=== PATIENT | male | born 1970 | race American Indian/Alaskan Native ===

== ENCOUNTER 2022-06-22 09:05 | Inpatient (IN) | payer SELFPAY ==
[2022-06-22 10:39] LABS: Basophils % (Auto) 0.3 % (0.0-1.8); Eosinophils % (Auto) 0.2 % (0.0-4.3); Hemoglobin 15.4 gm/dl (11.8-15.2); Lymphocytes % (Auto) 7.9 % (13.4-35.0); Mean Corpuscular HGB Conc 33 % (32-34); Mean Corpuscular Volume 89 fl (84-94); Monocytes # (Auto) 1.4 K/mm3 (0.0-0.8); Monocytes % (Auto) 10.8 % (0.0-7.3); Platelet Count 331 K/mm3 (140-440); Red Blood Count 5.27 M/mm3 (3.65-5.03); Red Cell Distribution Width 15.3 % (13.2-15.2)
[2022-06-22 10:58] LABS: BUN/Creatinine Ratio 11; Blood Urea Nitrogen 9 mg/dL (9-20); Calcium 9.7 mg/dL (8.4-10.2); Hemolysis Index 3
[2022-06-22] MEDS ORDERED: FAMOTIDINE 20 MG/2 ML INJ IV ONE (18:38)
[2022-06-22] MEDS ORDERED: SODIUM CHLORIDE 0.9% 1000 ML 1,000 ML IV ONE (18:38)
[2022-06-22] MEDS ORDERED: ONDANSETRON 4 MG/2 ML INJ IV ONE ×2 (18:38→21:58)
[2022-06-22] MEDS ORDERED: HYDROmorphone 1 MG/1 ML INJ IV ONE (18:38)
[2022-06-22 19:53] LABS: Color,Urine Yellow (Yellow)
[2022-06-22 19:56] LABS: Bacteria,Urine 1+ /HPF (Negative); Granular Casts,Urine 3 /LPF; Hyaline Casts,Urine 1 /LPF; Mucus,Urine 1+ /HPF
[2022-06-22 20:00] LABS: Ictotest,Urine Negative (Negative)
--- NOTE | 2022-06-22 20:07 | Emergency Department Report ---
<ARABELLA MCCRAY - Last Filed: 06/22/22 20:03> ED Abdominal Pain HPI - General Chief Complaint: Abdominal Pain Stated Complaint: STOMACH PAIN Source: patient Mode of arrival: Wheelchair Limitations: No Limitations - History of Present Illness Initial Comments: Patient is a 52-year-old male with no past medical history who presents to the ED with complaint of acute onset persistent right upper quadrant and right lower quadrant with nausea and vomiting for the last 2 days, worse in the last 12 hours. Patient states that he has not been able to keep anything down in the last 24 hours. Patient denies dizziness, syncope, fever, chills, chest pain, shortness of breath, cough, traumatic injury, hematemesis, hematochezia, diarrhea, dysuria, urinary frequency and urgency, testicular pain or hematuria. MD Complaint: abdominal pain (RUQ and RLQ ), other (nausea, vomiting) -: Gradual, days(s) (2) Location: periumbilical, RUQ, RLQ Radiation: RUQ, RLQ Migration to: no migration Severity: severe Severity scale (0 -10): 7 Quality: cramping, sharp Consistency: constant Improves With: nothing Worsens With: vomiting Associated Symptoms: denies other symptoms, nausea, vomiting, anorexia. denies: diarrhea, fever, chills, constipation, hematemesis, hematochezia, melena, hematuria, syncope, other - Related Data Allergies Allergy/AdvReac Type Severity Reaction Status Date / Time No Known Allergies Allergy Verified 06/22/22 09:33 ED Review of Systems Constitutional: denies: chills, fever Eyes: denies: eye pain, eye discharge, vision change ENT: denies: ear pain, throat pain Respiratory: denies: cough, shortness of breath, wheezing Cardiovascular: denies: chest pain, palpitations Endocrine: no symptoms reported Gastrointestinal: abdominal pain, nausea, vomiting. denies: diarrhea Genitourinary: denies: urgency, dysuria Musculoskeletal: denies: back pain, joint swelling, arthralgia Skin: denies: rash, lesions Neurological: denies: headache, weakness, paresthesias Psychiatric: denies: anxiety, depression Hematological/Lymphatic: denies: easy bleeding, easy bruising ED Physical Exam - General Limitations: No Limitations General appearance: alert, in no apparent distress - Head Head exam: Present: atraumatic, normocephalic, normal inspection - Eye Eye exam: Present: normal appearance, PERRL, EOMI Pupils: Present: normal accommodation - ENT ENT exam: Present: normal exam, normal orophraynx, mucous membranes moist, TM's normal bilaterally, normal external ear exam - Neck Neck exam: Present: normal inspection, full ROM - Respiratory Respiratory exam: Present: normal lung sounds bilaterally. Absent: respiratory distress, wheezes, rales, rhonchi, chest wall tenderness, accessory muscle use, decreased breath sounds, prolonged expiratory - Cardiovascular Cardiovascular Exam: Present: regular rate, normal rhythm, normal heart sounds. Absent: systolic murmur, diastolic murmur, rubs, gallop - GI/Abdominal GI/Abdominal exam: Present: soft, tenderness (Palpable right upper quadrant and right lower quadrant), guarding, normal bowel sounds. Absent: rebound, hyp eractive bowel sounds, hypoactive bowel sounds, organomegaly, mass, bruit - Extremities Exam Extremities exam: Present: normal inspection, full ROM, normal capillary refill. Absent: tenderness - Back Exam Back exam: Present: normal inspection, full ROM. Absent: tenderness, CVA tenderness (R), CVA tenderness (L), muscle spasm, paraspinal tenderness, vertebral tenderness - Neurological Exam Neurological exam: Present: alert, oriented X3, CN II-XII intact, normal gait, reflexes normal - Psychiatric Psychiatric exam: Present: normal affect, normal mood - Skin Skin exam: Present: warm, dry, intact, normal color. Absent: rash ED Medical Decision Making - Lab Data Result diagrams: 06/22/22 09:54 06/22/22 09:54 - Radiology Data Radiology results: report reviewed, image reviewed - Medical Decision Making This is a 52-year-old male with no past medical history who presents to the ED with complaint of acute onset persistent right upper quadrant and right lower qu adrant with nausea and vomiting for the last 2 days, worse in the last 12 hours. Patient states that he has not been able to keep anything down in the last 24 hours. In the ED, patient is alert and oriented x3 and is not in any distress. Patient was treated for pain in the ED also given antiemetics, antacids and normal saline 1 L IV bolus x1. Lab test results were reviewed and showed acute leukocytosis of 12,500. Abdomen pelvis CT scan with IV contrast is pending. Patient care was transferred to my colleague Mr. Rodney Robbins NP at shift change at 2000 hours. He shall review all lab test results and imaging report and disposition the patient accordingly. - Differential Diagnosis Appendicitis; cholecystitis; cholelithiasis; colitis; kidney stone; UTI ED Disposition Clinical Impression: Nausea and vomiting in adult, Abdominal pain in male, Acute cholecystitis, Gall stones Disposition: HOME / SELF CARE / HOMELESS Condition: Stable Instructions: Nausea and Vomiting, Adult, [id number], Abdominal Pain, Adult, [id number], Cholecystitis <LAI ROBBINS - Last Filed: 06/22/22 22:25> ED Review of Systems ROS: Stated complaint: STOMACH PAIN Other details as noted in HPI ED Course Vital Signs 06/22/22 06/22/22 06/22/22 09:30 10:54 22:00 Temperature 98.7 F Pulse Rate 66 79 93 H Respiratory 20 22 20 Rate Blood Pressure 175/94 171/99 171/79 [Right] O2 Sat by Pulse 98 98 96 Oximetry ED Medical Decision Making - Lab Data Result diagrams: 06/22/22 09:54 06/22/22 09:54 - Radiology Data CT ABDOMEN AND PELVIS WITH IV CONTRAST INDICATION: abdominal pain. COMPARISON: Right upper quadrant ultrasound earlier today. TECHNIQUE: All CT scans at this facility use dose modulation, automated exposure control, iterative reconstruction or weight based dosing, when appropriate, to reduce radiation dose to as low as reasonably achievable. FINDINGS: Lung Bases: Bibasilar opacities greater on the right are most likely atelectatic. Skeletal System: No acute abnormality. ABDOMEN: Liver: No significant abnormality. Gallbladder: Gallbladder is distended and there is moderate pericholecystic inflammatory change. Bile Ducts: No significant abnormality. Adrenals: No significant abnormality. Right Kidney: No significant abnormality. Left Kidney: No significant abnormality. Pancreas: No significant abnormality. Spleen: No significant abnormality. Upper GI tract: No significant abnormality. Lymph Nodes: No significant adenopathy. Aorta: No significant abnormality. Additional Findings: Trace free fluid PELVIS: Colon: No acute abnormality. Urinary Bladder and Distal Ureters: No significant abnormality. Appendix: No significant abnormality. Lymph Nodes: No significant adenopathy. Additional Findings: Trace free fluid. IMPRESSION: 1. Gallbladder is distended and there is moderate pericholecystic inflammatory change. Combining this with the ultrasound findings, these findings are consistent with acute cholecystitis. There is trace free fluid in the perihepatic region and in the pelvis. Signer Name: Lars Marcos MD Signed: 06/22/2022 9:38 PM Workstation Name: [id number] Transcribed By: ALVARO Dictated By: Lars Marcos MD Electronically Authenticated By: Lars Marcos MD Signed Date/Time: 06/22/222137 DD/ 33 TD/TT: ULTRASOUND ABDOMEN, LIMITED (RIGHT UPPER QUADRANT) INDICATION / CLINICAL INFORMATION: RUQ pain. COMPARISON: None available. FINDINGS: PANCREAS: Visualized portion shows no significant abnormality. LIVER: No significant abnormality. Normal hepatopedal blood flow in the main portal vein. GALLBLADDER: Gallbladder is filled with sludge and a few small stones. No pericholecystic fluid or gallbladder wall thickening is seen. The conveyancer reported a negative sonographic Hernandez sign. BILE DUCTS: No significant abnormality. Common bile duct measures 3 mm. FREE FLUID: None. ADDITIONAL FINDINGS: None. IMPRESSION: 1. Gallbladder is filled with sludge and a few punctate stones. No biliary dilatation or gallbladder wall thickening. Negative sonographic Hernandez's sign. Signer Name: Lars Marcos MD Signed: 06/22/2022 8:27 PM Workstation Name: [id number] Transcribed By: ALVARO Dictated By: Lars Marcos MD Electronically Authenticated By: Lars Marcos MD Signed Date/Time: 06/22/222026 DD/ 25 TD/TT: - Medical Decision Making consulted hospitalist diagnosis acute cholecystitis recommendation consult general surgery General surgery paged at this time. General surgery consult completed recommendation admit acute cholecystitis, n.p.o. after midnight, antibiotic therapy Zosyn, admit to hospitalist. Will see in AM. Discussed treatment plan with hospitalist agrees with same. Discussed treatment plan with patient patient agrees. Patient is currently alert oriented x3 pain is 4/10 tolerable per patient. Vomiting is controlled at this time. Patient with no acute distress. Critical care attestation.: If time is entered above; I have spent that time in minutes in the direct care of this critically ill patient, excluding procedure time. ED Disposition Is pt being admited?: Yes Does the pt Need Aspirin: No
--- NOTE | 2022-06-22 20:31 | Ultrasound Report ---
ULTRASOUND ABDOMEN, LIMITED (RIGHT UPPER QUADRANT) INDICATION / CLINICAL INFORMATION: RUQ pain. COMPARISON: None available. FINDINGS: PANCREAS: Visualized portion shows no significant abnormality. LIVER: No significant abnormality. Normal hepatopedal blood flow in the main portal vein. GALLBLADDER: Gallbladder is filled with sludge and a few small stones. No pericholecystic fluid or ga llbladder wall thickening is seen. The title i teacher reported a negative sonographic Hernandez sign. BILE DUCTS: No significant abnormality. Common bile duct measures 3 mm. FREE FLUID: None. ADDITIONAL FINDINGS: None. IMPRESSION: 1. Gallbladder is filled with sludge and a few punctate stones. No biliary dilatation or gallbladder wall thickening. Negative sonographic Hernandez's sign. Signer Name: Lars Marcos MD Signed: 06/22/2022 8:27 PM Workstation Name: [id number]
--- NOTE | 2022-06-22 21:42 | Cat Scan Report ---
CT ABDOMEN AND PELVIS WITH IV CONTRAST INDICATION: abdominal pain. COMPARISON: Right upper quadrant ultrasound earlier today. TECHNIQUE: All CT scans at this facility use dose modulation, automated exposure control, iterative reconstructi on or weight based dosing, when appropriate, to reduce radiation dose to as low as reasonably achieva ble. FINDINGS: Lung Bases: Bibasilar opacities greater on the right are most likely atelectatic. Skeletal System: No acute abnormality. ABDOMEN: Liver: No significant abnormality. Gallbladder: Gallbladder is distended and there is moderate pericholecystic inflammatory change. Bile Ducts: No significant abnormality. Adrenals: No significant abnormality. Right Kidney: No significant abnormality. Left Kidney: No significant abnormality. Pancreas: No significant abnormality. Spleen: No significant abnormality. Upper GI tract: No significant abnormality. Lymph Nodes: No significant adenopathy. Aorta: No significant abnormality. Additional Findings: Trace free fluid PELVIS: Colon: No acute abnormality. Urinary Bladder and Distal Ureters: No significant abnormality. Appendix: No significant abnormality. Lymph Nodes: No significant adenopathy. Additional Findings: Trace free fluid. IMPRESSION: 1. Gallbladder is distended and there is moderate pericholecystic inflammatory change. Combining thi s with the ultrasound findings, these findings are consistent with acute cholecystitis. There is trac e free fluid in the perihepatic region and in the pelvis. Signer Name: Lars Marcos MD Signed: 06/22/2022 9:38 PM Workstation Name: [id number]
[2022-06-22] MEDS ORDERED: MORPHINE 4 MG/1 ML INJ IV ONE (21:58)
[2022-06-22] MEDS ORDERED: PIPERACIL/TAZOBACTA 4.5/NS 100 4.5 GM/100 ML VIAL IV ONE (21:59)
[2022-06-23] LABS: Albumin 4.3 g/dL (3.9-5); Bilirubin,Direct 0.6 mg/dL (0-0.2)
[2022-06-23] MEDS ORDERED: ACETAMINOPHEN 325 MG TAB PO PRN (00:56)
[2022-06-23] MEDS ORDERED: MORPHINE 4 MG/1 ML INJ IV PRN (00:56)
[2022-06-23] MEDS ORDERED: ONDANSETRON 4 MG/2 ML INJ IV PRN (00:56)
[2022-06-23] MEDS ORDERED: MAGNESIUM HYDROXIDE (MOM) ORAL LIQD UDC PO PRN (00:56)
[2022-06-23] MEDS ORDERED: SODIUM CHLORIDE 0.9% 1000 ML 1,000 ML IV SCH (01:00)
--- NOTE | 2022-06-23 01:03 | History and Physical Report ---
History of Present Illness Date of examination: 06/23/22 Date of admission: 06/23/2022 Chief complaint: Nausea and Vomiting Abdominal Pain History of present illness: 52-year-old male with no significant past medical history presenting to the emergency room today complaining of abdominal pain. Abdominal pain central started about 2 days ago when he has been having associated nausea and vomiting. Abdominal pain is more in the right upper abdomen. No no relieving or exacerbating factor. He denies any chest pain or shortness of breath, denies any headache or dizziness and denies any diaphoresis. Patient states he has had some mild fever and chills earlier today. He denies any sick contacts and no recent travel. Denies any contact with anyone with COVID-19. Denies any hematuria or dysuria. Work-up in the emergency room today, gallbladder ultrasound reveals sludge and a few punctate stones. No biliary dilatation. CT abdomen and pelvis reveals reveals findings consistent with acute cholecystitis. General surgeon on-call has been notified by the ER physician. Patient also started on empiric IV antibiotics and IV fluid. Past History Past Medical History: No medical history Past Surgical History: No surgical history Social history: no significant social history Medications and Allergies Allergies Allergy/AdvReac Type Severity Reaction Status Date / Time No Known Allergies Allergy Verified 06/22/22 09:33 Review of Systems Constitutional: fever, chills Ears, nose, mouth and throat: no nasal congestion, no sore throat Cardiovascular: no chest pain, no palpitations Respiratory: no cough, no shortness of breath Gastrointestinal: abdominal pain, nausea, vomiting, no diarrhea Genitourinary Male: no dysuria, no hematuria, no flank pain Musculoskeletal: no neck pain, no low back pain Integumentary: no rash, no pruritis Neurological: no headaches, no confusion Psychiatric: no anxiety, no depression Endocrine: no polyphagia, no polydipsia, no polyuria, no nocturia Exam - Constitutional Vitals: Temp Pulse Resp BP Pulse Ox 98.7 F 93 H 18 171/79 96 06/22/22 09:30 06/22/22 22:00 06/22/22 22:20 06/22/22 22:00 06/22/22 22:00 General appearance: Present: no acute distress, well-nourished - EENT Eyes: Present: PERRL, EOM intact. Absent: scleral icterus ENT: hearing intact, clear oral mucosa, dentition normal - Neck Neck: Present: supple, normal ROM - Respiratory Respiratory effort: normal Respiratory: bilateral: CTA - Cardiovascular Rhythm: regular Heart Sounds: Present: S1 & S2. Absent: gallop, systolic murmur, diastolic murmur, rub, click - Extremities Extremities: no ischemia, pulses intact, pulses symmetrical, No edema, normal temperature, normal color, Full ROM Peripheral Pulses: within normal limits - Abdominal General gastrointestinal: Present: soft, tender (Moderate right upper quadrant tenderness, no rebound and no guarding), non-distended, normal bowel sounds. Absent: mass - Integumentary Integumentary: Present: clear, warm, dry, normal turgor. Absent: rash - Musculoskeletal Musculoskeletal: strength equal bilaterally - Psychiatric Psychiatric: appropriate mood/affect, intact judgment & insight, memory intact, cooperative - Neurologic Neurologic: CNII-XII intact, no focal deficits, moves all extremities Results - Labs CBC & Chem 7: 06/22/22 09:54 06/22/22 09:54 Labs: Abnormal lab results 06/22/22 06/22/22 06/22/22 Range/Units 09:54 09:54 18:42 WBC 12.5 H (4.5-11.0) K/mm3 RBC 5.27 H (3.65-5.03) M/mm3 Hgb 15.4 H (11.8-15.2) gm/dl Hct 47.0 H (35.5-45.6) % RDW 15.3 H (13.2-15.2) % Lymph % (Auto) 7.9 L (13.4-35.0) % [place] % (Auto) 10.8 H (0.0-7.3) % Lymph # (Auto) 1.0 L (1.2-5.4) K/mm3 [place] # (Auto) 1.4 H (0.0-0.8) K/mm3 Seg Neutrophils % 80.8 H (40.0-70.0) % Seg Neutrophils # 10.1 H (1.8-7.7) K/mm3 Glucose 131 H (75-100) mg/dL Total Bilirubin (0.1-1.2) mg/dL Direct Bilirubin (0-0.2) mg/dL Urine WBC (Auto) 9.0 H (0.0-6.0) /HPF 06/22/22 Range/Units 23:25 WBC (4.5-11.0) K/mm3 RBC (3.65-5.03) M/mm3 Hgb (11.8-15.2) gm/dl Hct (35.5-45.6) % RDW (13.2-15.2) % Lymph % (Auto) (13.4-35.0) % [place] % (Auto) (0.0-7.3) % Lymph # (Auto) (1.2-5.4) K/mm3 [place] # (Auto) (0.0-0.8) K/mm3 Seg Neutrophils % (40.0-70.0) % Seg Neutrophils # (1.8-7.7) K/mm3 Glucose (75-100) mg/dL Total Bilirubin 1.30 H (0.1-1.2) mg/dL Direct Bilirubin 0.6 H (0-0.2) mg/dL Urine WBC (Auto) (0.0-6.0) /HPF Assessment and Plan Assessment: 1. Acute cholecystitis 2. Nausea vomiting 3. Gallbladder sludge Plan: 1. Patient admitted and placed NPO. 2. We commenced on IV fluid and empiric IV antibiotics. 3. Patient also placed on IV analgesic medication as needed. DVT prophylaxis: Sequential compression device. CODE STATUS: Full code I
[2022-06-23] MEDS: PIPERACIL/TAZOBACTA 4.5/NS 100 4.5 GM/100 ML VIAL IV SCH ×3 (06:16→21:50)
--- NOTE | 2022-06-23 09:37 | Progress Note ---
Assessment and Plan Assessment and plan: 52-year-old male with no significant past medical history presenting to the emergency room today complaining of abdominal pain. Work-up in the emergency room today, gallbladder ultrasound reveals sludge and a few punctate stones. No biliary dilatation. CT abdomen and pelvis reveals reveals findings consistent with acute cholecystitis. Acute cholecystitis Sepsis. POA. Patient meets criteria given the leukocytosis, tachycardia and diagnosis of cholecystitis. Abdominal pain 06/23/2022. Continue IV antibiotics. Follow-up blood cultures. Await general surgery consultation History Interval history: No new issues overnight Hospitalist Physical - Constitutional Vitals: Temp Pulse Resp BP Pulse Ox 98.1 F 101 H 17 156/101 98 06/23/22 02:45 06/23/22 02:45 06/23/22 04:00 06/23/22 02:45 06/23/22 04:00 General appearance: Present: no acute distress, well-nourished - EENT Eyes: Present: PERRL, EOM intact ENT: hearing intact, clear oral mucosa, dentition normal - Neck Neck: Present: supple, normal ROM - Respiratory Respiratory effort: normal Respiratory: bilateral: CTA - Cardiovascular Rhythm: regular Heart Sounds: Present: S1 & S2. Absent: gallop, rub - Extremities Extremities: no ischemia, No edema, Full ROM - Abdominal General gastrointestinal: soft, non-tender, non-distended, normal bowel sounds - Integumentary Integumentary: Present: clear, warm, dry - Neurologic Neurologic: CNII-XII intact, moves all extremities Results - Labs CBC & Chem 7: 06/22/22 09:54 06/22/22 09:54 Labs: Laboratory Last Values WBC 12.5 K/mm3 (4.5-11.0) H 06/22/22 09:54 RBC 5.27 M/mm3 (3.65-5.03) H 06/22/22 09:54 Hgb 15.4 gm/dl (11.8-15.2) H 06/22/22 09:54 Hct 47.0 % (35.5-45.6) H 06/22/22 09:54 MCV 89 fl (84-94) 06/22/22 09:54 MCH 29 pg (28-32) 06/22/22 09:54 MCHC 33 % (32-34) 06/22/22 09:54 RDW 15.3 % (13.2-15.2) H 06/22/22 09:54 Plt Count 331 K/mm3 (140-440) 06/22/22 09:54 Lymph % (Auto) 7.9 % (13.4-35.0) L 06/22/22 09:54 [place] % (Auto) 10.8 % (0.0-7.3) H 06/22/22 09:54 Eos % (Auto) 0.2 % (0.0-4.3) 06/22/22 09:54 Baso % (Auto) 0.3 % (0.0-1.8) 06/22/22 09:54 Lymph # (Auto) 1.0 K/mm3 (1.2-5.4) L 06/22/22 09:54 [place] # (Auto) 1.4 K/mm3 (0.0-0.8) H 06/22/22 09:54 Eos # (Auto) 0.0 K/mm3 (0.0-0.4) 06/22/22 09:54 Baso # (Auto) 0.0 K/mm3 (0.0-0.1) 06/22/22 09:54 Seg Neutrophils % 80.8 % (40.0-70.0) H 06/22/22 09:54 Seg Neutrophils # 10.1 K/mm3 (1.8-7.7) H 06/22/22 09:54 Sodium 138 mmol/L (137-145) 06/22/22 09:54 Potassium 4.3 mmol/L (3.6-5.0) 06/22/22 09:54 Chloride 98.5 mmol/L (98-107) 06/22/22 09:54 Carbon Dioxide 25 mmol/L (22-30) 06/22/22 09:54 Anion Gap 19 mmol/L 06/22/22 09:54 BUN 9 mg/dL (9-20) 06/22/22 09:54 Creatinine 0.8 mg/dL (0.8-1.3) 06/22/22 09:54 Estimated GFR > 60 ml/min 06/22/22 09:54 BUN/Creatinine Ratio 11 % 06/22/22 09:54 Glucose 131 mg/dL (75-100) H 06/22/22 09:54 Calcium 9.7 mg/dL (8.4-10.2) 06/22/22 09:54 Total Bilirubin 1.30 mg/dL (0.1-1.2) H 06/22/22 23:25 Direct Bilirubin 0.6 mg/dL (0-0.2) H 06/22/22 23:25 Indirect Bilirubin 0.7 mg/dL 06/22/22 23:25 AST 17 units/L (5-40) 06/22/22 23:25 ALT 15 units/L (7-56) 06/22/22 23:25 Alkaline Phosphatase 100 units/L (35-129) 06/22/22 23:25 Total Protein 7.3 g/dL (6.3-8.2) 06/22/22 23:25 Albumin 4.3 g/dL (3.9-5) 06/22/22 23:25 Albumin/Globulin Ratio 1.4 % 06/22/22 23:25 Amylase 85 units/L (27-131) 06/22/22 09:54 Lipase 23 units/L (13-60) 06/22/22 09:54 Urine Color Yellow (Yellow) 06/22/22 18:42 Urine Turbidity Turbid (Clear) 06/22/22 18:42 Specific [place] (Man) 1.030 (1.003-1.030) 06/22/22 18:42 Ur Protein (Man) 4+ mg/dL (Negative) 06/22/22 18:42 Ur Ketones (Man) 3+ (Negative) 06/22/22 18:42 Ur Nitrite (Man) Negative (Negative) 06/22/22 18:42 Urine Bilirubin (Man) Moderate (Negative) 06/22/22 18:42 Urine Ictotest Negative (Negative) 06/22/22 18:42 Leukocyte Esterase (Man) Negative (Negative) 06/22/22 18:42 Urine WBC (Auto) 9.0 /HPF (0.0-6.0) H 06/22/22 18:42 Urine RBC (Auto) 9.0 /HPF (0.0-6.0) 06/22/22 18:42 U Epithel Cells (Auto) 1.0 /HPF (0-13.0) 06/22/22 18:42 Urine Bacteria (Auto) 1+ /HPF (Negative) 06/22/22 18:42 Urine RBC (Manual) 2+ (Negative) 06/22/22 18:42 Hyaline Casts 1 /LPF 06/22/22 18:42 Granular Casts 3 /LPF 06/22/22 18:42 Urine Mucus 1+ /HPF 06/22/22 18:42 [place]/IV: Voiding Method Urinal Active Medications - Current Medications Current Medications: Generic Name Dose Route Start Last Admin Trade Name Freq PRN Reason Stop Dose Admin Acetaminophen 650 mg 06/23/22 00:56 Acetaminophen 325 Mg Tab PO Q4H PRN Pain MILD(1-3)/Fever >100.5/KAUR Sodium Chloride 1,000 mls @ 125 mls/hr 06/23/22 01:00 06/23/22 03:10 Nacl 0.9% 1000 Ml IV 125 mls/hr DIRECT NAN Administration Piperacillin Sod/Tazobactam Sod 4.5 gm in 100 mls @ 200 mls/hr 06/23/22 06:00 06/23/22 06:16 Zosyn/Ns 4.5gm/100ml IV 200 mls/hr Q8H NAN Administration Protocol Magnesium Hydroxide 30 ml 06/23/22 00:56 Magnesium Hydroxide (Mom) Oral Liqd Udc PO Q4H PRN Constipation Morphine Sulfate 2 mg 06/23/22 00:56 Morphine 2 Mg/1 Ml Inj IV Q4H PRN Pain, Moderate (4-6) Morphine Sulfate 4 mg 06/23/22 00:56 06/23/22 03:09 Morphine 4 Mg/1 Ml Inj IV 4 mg Q4H PRN Administration Pain , Severe (7-10) Ondansetron HCl 4 mg 06/23/22 00:56 Ondansetron 4 Mg/2 Ml Inj IV Q8H PRN Nausea And Vomiting Sodium Chloride 10 ml 06/23/22 10:00 Sodium Chloride 0.9% 10 Ml Flush Syringe IV BID NAN Sodium Chloride 10 ml 06/23/22 00:56 Sodium Chloride 0.9% 10 Ml Flush Syringe IV PRN PRN LINE FLUSH
[2022-06-23] MEDS ORDERED: HYDROmorphone 0.5 MG/0.5 ML INJ IV PRN (11:14)
[2022-06-23] MEDS ORDERED: MIDAZOLAM 2 MG/2 ML INJ IV NR (12:00)
[2022-06-23] MEDS: MORPHINE 2 MG/1 ML INJ IV PRN (12:09)
[2022-06-23] MEDS ORDERED: INDOCYANINE GREEN 25 MG VIAL IVP NR (13:00)
--- NOTE | 2022-06-23 13:17 | Anesthesia Consultation ---
Anesthesia Consult and Med Hx Date of service: 06/23/22 - Airway Anesthetic Teeth Evaluation: Poor ROM Head & Neck: Adequate Mental/Hyoid Distance: Adequate Mallampati Class: Class II Intubation Access Assessment: Probably Good - Pulmonary Exam CTA: Yes - Cardiac Exam Cardiac Exam: RRR - Pre-Operative Health Status ASA Pre-Surgery Classification: ASA2 Proposed Anesthetic Plan: General - Pulmonary Hx Smoking: Yes (1 PPD for >20 years) Hx Asthma: No Hx Respiratory Symptoms: No COPD: No Hx Pneumonia: No - Cardiovascular System Hx Hypertension: Yes (No medication for 2 days) Hx Cardia Arrhythmia: No - Central Nervous System Hx Seizures: No CVA: No - Endocrine Hx Renal Disease: No Hx Liver Disease: No - Hematic Hx Anemia: No - Other Systems Hx Alcohol Use: No Hx Substance Use: No Hx Cancer: No - Additional Comments Anesthesia Medical History Comments: No previous anesthetic. No FHAC.
--- NOTE | 2022-06-23 13:17 | Anesthesia Day of Surgery ---
Anesthesia Day of Surgery - Day of Surgery Patient Examined: Yes Patient H&P Reviewed: Yes Patient is NPO: Yes
[2022-06-23] MEDS ORDERED: SUCCINYLCHOLINE CHLORIDE 200 MG/10 ML INJ MDV ONE (13:28)
[2022-06-23] MEDS ORDERED: NEOSTIGMINE 10MG/10 ML INJ MDV ONE (13:28)
[2022-06-23] MEDS ORDERED: ROCURONIUM 50 MG/5 ML INJ IV ONE (13:28)
[2022-06-23] MEDS ORDERED: GLYCOPYRROLATE 0.4 MG/2 ML INJ ONE (13:28)
[2022-06-23] MEDS ORDERED: LIDOCAINE MPF (2%) 20 MG/1 ML VIAL 5 ML ONE (13:28)
[2022-06-23] MEDS ORDERED: dexAMETHasone 20 MG/5 ML VIAL ONE (13:28)
[2022-06-23] MEDS ORDERED: ONDANSETRON 4 MG/2 ML INJ ONE (13:28)
[2022-06-23] MEDS ORDERED: HYDROmorphone 1 MG/1 ML INJ ONE (13:29)
[2022-06-23] MEDS ORDERED: propofoL 200 MG/20 ML VIAL IV ONE (13:31)
--- NOTE | 2022-06-23 13:33 | Electrocardiograph Report ---
[facility] Test Date: 2022-06-22 Test Time: 11:29:50 Pat Name: GAGANDEEP LENZ Department: Room: A377 1 Gender: M [employer] In[employer]: NURSE : 1970 Requested By: MAIKOL GRAFF Order Number: [id number] Reading MD: Rosalba Giron Measurements Intervals [place] Rate: 68 P: -14 GA: 132 QRS: 62 QRSD: 91 T: 61 QT: 380 QTc: 405 Interpretive Statements Sinus rhythm ST elev, probable normal early repol pattern No previous ECG available for comparison Electronically Signed On 06-23-2022 13:33:47 EDT by Rosalba Giron
[2022-06-23] MEDS ORDERED: LIDOCAINE (1%) 10 MG/1 ML VIAL 20 ML MDV ONE (13:44)
[2022-06-23] MEDS ORDERED: BUPIVACAINE/PF (0.5%) 5 MG/1 ML 30 ML VIAL INFILTRATI ONE ×2 (13:44→15:01)
--- NOTE | 2022-06-23 14:11 | Consultation ---
History of Present Illness Consult date: 06/23/22 Reason for consult: gallstones Chief complaint: ABD PAIN - History of present illness History of present illness: 52 yo M with hx of HTN who presents to ER with 3 days of worsening, intermittent, sharp RUQ pain. Pain is now constant and does not radiate. He states he has never had pain like this before. He are a hamburger the day the pain started. +NB/NB emesis and nausea. No f/c. NO cp, sob, c/d. Past History Past Medical History: hypertension Past Surgical History: No surgical history Social history: , smoking (1PPD). denies: alcohol abuse Family history: no significant family history Medications and Allergies Allergies Allergy/AdvReac Type Severity Reaction Status Date / Time No Known Allergies Allergy Verified 06/22/22 09:33 Home Medications Medication Instructions Recorded Confirmed Last Taken Type amLODIPine [Norvasc] 10 mg PO DAILY 06/23/22 06/23/22 06/21/22 History Active Meds: Active Medications Acetaminophen (Acetaminophen 325 Mg Tab) 650 mg PO Q4H PRN PRN Reason: Pain MILD(1-3)/Fever >100.5/KAUR Hydromorphone HCl (Hydromorphone 0.5 Mg/0.5 Ml Inj) 0.5 mg IV Q10MIN PRN PRN Reason: Pain , Severe (7-10) Stop: 06/23/22 23:59 Sodium Chloride (Nacl 0.9% 1000 Ml) 1,000 mls @ 125 mls/hr IV DIRECT NAN Last Admin: 06/23/22 03:10 Dose: 125 mls/hr Piperacillin Sod/Tazobactam Sod (Zosyn/Ns 4.5gm/100ml) 4.5 gm in 100 mls @ 200 mls/hr IV Q8H NAN; Protocol Last Admin: 06/23/22 06:16 Dose: 200 mls/hr Indocyanine Green (Indocyanine Green 25 Mg Vial) 2.5 mg IVP ONCE NR Stop: 06/23/22 23:59 Magnesium Hydroxide (Magnesium Hydroxide (Mom) Oral Liqd Udc) 30 ml PO Q4H PRN PRN Reason: Constipation Midazolam HCl (Midazolam 2 Mg/2 Ml Inj) 2 mg IV PREOP NR Stop: 06/23/22 23:59 Morphine Sulfate (Morphine 2 Mg/1 Ml Inj) 2 mg IV Q4H PRN PRN Reason: Pain, Moderate (4-6) Last Admin: 06/23/22 12:09 Dose: 2 mg Morphine Sulfate (Morphine 4 Mg/1 Ml Inj) 4 mg IV Q4H PRN PRN Reason: Pain , Severe (7-10) Last Admin: 06/23/22 03:09 Dose: 4 mg Ondansetron HCl (Ondansetron 4 Mg/2 Ml Inj) 4 mg IV Q8H PRN PRN Reason: Nausea And Vomiting Sodium Chloride (Sodium Chloride 0.9% 10 Ml Flush Syringe) 10 ml IV BID NAN Last Admin: 06/23/22 12:10 Dose: 10 ml Sodium Chloride (Sodium Chloride 0.9% 10 Ml Flush Syringe) 10 ml IV PRN PRN PRN Reason: LINE FLUSH Review of Systems All systems: negative (10 pt ros performed and negative except for that listed in HPI) Exam Vital Signs Temp Pulse Resp BP Pulse Ox 98.7 F 66 20 175/94 98 06/22/22 09:30 06/22/22 09:30 06/22/22 09:30 06/22/22 09:30 06/22/22 09:30 Narrative exam: Gen.: Awake, alert, oriented x3. No apparent distress ENT: Trachea midline. No lymphadenopathy. No scleral icterus or conjunctival pallor CV: S1, S2 present Respiratory: No audible wheezes Abdomen: Soft, nondistended, RUQ TTP. No rebound, rigidity, guarding Extremities: No clubbing, cyanosis, edema Results - Labs 06/22/22 09:54 06/22/22 09:54 Abnormal lab results 06/22/22 06/22/22 Range/Units 18:42 23:25 Total Bilirubin 1.30 H (0.1-1.2) mg/dL Direct Bilirubin 0.6 H (0-0.2) mg/dL Urine WBC (Auto) 9.0 H (0.0-6.0) /HPF Diabetes panel 06/22/22 Range/Units 23:25 AST 17 (5-40) units/L ALT 15 (7-56) units/L Alkaline Phosphatase 100 (35-129) units/L Total Protein 7.3 (6.3-8.2) g/dL Albumin 4.3 (3.9-5) g/dL Calcium panel 06/22/22 Range/Units 23:25 Albumin 4.3 (3.9-5) g/dL Adrenal panel 06/22/22 Range/Units 23:25 Total Bilirubin 1.30 H (0.1-1.2) mg/dL AST 17 (5-40) units/L ALT 15 (7-56) units/L Alkaline Phosphatase 100 (35-129) units/L Total Protein 7.3 (6.3-8.2) g/dL Albumin 4.3 (3.9-5) g/dL - Imaging CT scan - abdomen: report reviewed, image reviewed CT scan - pelvis: report reviewed, image reviewed US - abdomen: report reviewed, image reviewed Assessment and Plan 52 yo M with acute cholecystitis Plan: 1. NPO 2. IVF 3. prn pain and nausea control 4. DVT ppx 5. Iv abx 6. Recommend cholecystectomy. I explained the pathophysiology of gallbladder disease to the patient. I discussed all risks, benefits, alternatives to surgery with the patient. All questions answered and consent obtained. Patient present during discussion. Thank you for this consultation. Please call with any questions or concerns. Evaluation and treatment of this patient was during the time of the national and state emergency arising from COVID19 coronavirus pandemic. Treatment and procedures performed meet the current and available best practice and guidelines for patient during the COVID pandemic.
[2022-06-23] MEDS ORDERED: fentaNYL 100 MCG/2 ML INJ ONE (14:34)
[2022-06-23] MEDS ORDERED: LIDOCAINE (1%) 10 MG/1 ML VIAL 20 ML MDV INFILTRATI ONE (15:02)
[2022-06-23] MEDS ORDERED: SODIUM CHLORIDE 0.9% IRR 1,500 ML BOTTLE IR ONE (15:02)
--- NOTE | 2022-06-23 16:31 | Post Operative Note ---
Pre-op diagnosis: acute cholecystitis Post-op diagnosis: same (Acute gangrenous cholecystitis) Findings: Severely distended, gangrenous gallbladder with bile peritonitis Procedure: Robotic assisted cholecystectomy Anesthesia: SEANA, local Surgeon: ANGELI ALLEN Hearing Care Professional: JAD KIM Estimated blood loss: other (30cc) Pathology: list (Gallbladder) Specimen disposition: to lab Condition: stable Disposition: PACU
[2022-06-23] MEDS ORDERED: LACTATED RINGERS 1,000 ML ONE (16:32)
--- NOTE | 2022-06-23 17:19 | Post Anesthesia Evaluation ---
- Post Anesthesia Evaluation Patient Participated: Yes Airway Patent: Yes Stable Respiratory Function: Yes Nausea/Vomiting: No Temp > 96.8F: Yes Pain Manageable: Yes Adequeate Hydration: Yes Anesthesia Complications: No
--- NOTE | 2022-06-23 17:28 | Operative Report ---
Operative Report Operative Report: Pre-op diagnosis: acute cholecystitis Post-op diagnosis: same (Acute gangrenous cholecystitis) Findings: Severely distended, gangrenous gallbladder with bile peritonitis Procedure: Robotic assisted cholecystectomy Anesthesia: NANCI, local Surgeon: ANGELI ALLEN Motor Generator Set Operator: JAD KIM Estimated blood loss: other (30cc) Pathology: list (Gallbladder) Specimen disposition: to lab Condition: stable Disposition: PACU HPI an indication: 52-year-old male who presented to the ER with 3-4 days of RUQ abdominal pain, n/v after eating a hamburger. He was found to have leukocytosis and acute cholecystitis on CT A/P and U/s abd. Patient was admitted to the hospital and started on IVF and IV abx. It was recommended that the patient undergo cholecystectomy. All risks, benefits, alternatives to surgery were discussed in detail and questions answered. Consent was obtained for robotic assisted laparoscopic, possible open cholecystectomy, possible cholangiogram. Procedure in detail: The patient was identified in the preoperative area and taken back to the operating room, placed on the operating room table in supine position. After anesthesia was induced, the abdomen was prepped and draped in usual sterile fashion and timeout was performed. Local anesthetic was infiltrated into all of the skin incision sites. A supraumbilical incision was made through which a Veress needle was inserted. The Veress needle positioning was confirmed using the saline drop test and the abdomen insufflated to 15 mmHg without incident. The Veress needle was then removed and a 5 mm Optiview trocar was placed. The abdomen was inspected and there was no underlying injury to the abdominal structures. The right upper quadrant was visualized and there was induration of the omentum which was obscuring the gallbladder. 8 mm robotic trocars were then placed in the right upper quadrant left upper quadrant and left lateral abdomen under direct visualization. The 5 mm supraumbilical trocar was removed and replaced with an 8 mm robotic trocar. The patient was placed in reverse Trendelenburg and tilted to the left. The robot was then docked. A Tavares grasper was placed in arm #1, a camera in arm #2, a monopolar hook in arm #3, and a prograsp in arm #4. The surgeon was then transferred to the console. The gallbladder was severely distended and had patchy areas of gangrene. There were inflammatory adhesions from the omentum to the gallbladder which were gently swept down using blunt dissection. The area of the neck of the gallbladder was indurated. Using firefly, I attempted to identify the biliary tree. There was uptake in the liver however no uptake in the gallbladder or cystic duct. At this point I decided to perform a dome down approach. The peritoneum was scored at the fundus of the gallbladder and the gallbladder was dissected from the liver bed using hook electrocautery. The liver was very friable. In order to perform suctioning a 5 mm bilingual office assistant port was placed in the right lateral abdomen. I continued to dissection of the gallbladder from the liver bed in a dome down fashion until the neck of the gallbladder was identified. The cystic duct and artery were carefully skeletonized. The medial and lateral peritoneal attachments to the gallbladder were dissected using a combination of blunt dissection and hook electrocautery. The cystic duct and artery were the only 2 structures seen entering the gallbladder and the critical view was successfully obtained. 2 hemolock clips were placed on the proximal aspect of the cystic duct and 1 distally, and 1 hemolock clip was placed on the proximal aspect of the cystic artery and 1 distally. Both structures were transected in between the clips using EndoShears by the bilingual office assistant. The gallbladder was dissected from the liver bed using electrocautery. Once completely dissected it was placed into the right upper quadrant and the liver bed was examined for hemostasis. This was carefully ensured. The clips were visualized and intact. There was no bleeding or bile leakage. The liver bed was irrigated and the aspirant returned clear. The instrument in arm #3 was replaced with the camera. The bilingual office assistant surgeon d eployed the endocatch bag and the gallbladder was placed in the bag and secured. The robot was then undocked and the surgeon scrubbed back in. The remainder of the case was performed laparoscopically. The gallbladder was removed via the umbilical port. The fascia of this port was was closed with interrupted 0 Vicryl suture x2 using the Rosas Matson device. The raytec in the abdomen was removed. A 19F consuelo drain was placed through the right lateral 5 mm port and positioned in the gallbladder fossa. This was sutured to the skin using a 2-0 nylon drain stitch. The ports were then removed under direct visualization. Skin incisions were closed with 4-0 Monocryl subcuticular stitches and skin glue. A gauze was applied to the drain and secured with tegaden. All skin incisions were once again infiltrated with local anesthetic. At the end case all sponge, instrument, sharp counts were correct 2. The patient was awoken from anesthesia, extubated, and taken to PACU in stable condition.
[2022-06-24 05:29] LABS: Hematocrit 38.2 % (35.5-45.6); Hemoglobin 12.4 gm/dl (11.8-15.2); Mean Corpuscular HGB Conc 32 % (32-34); Mean Corpuscular Volume 90 fl (84-94); Platelet Count 273 K/mm3 (140-440); Red Blood Count 4.25 M/mm3 (3.65-5.03); Red Cell Distribution Width 15.4 % (13.2-15.2)
[2022-06-24] MEDS: PIPERACIL/TAZOBACTA 4.5/NS 100 4.5 GM/100 ML VIAL IV SCH ×3 (05:46→22:56)
[2022-06-24 05:49] LABS: Alanine Aminotransferase 26 units/L (7-56); Albumin 3.5 g/dL (3.9-5); BUN/Creatinine Ratio 13; Blood Urea Nitrogen 15 mg/dL (9-20); Calcium 8.9 mg/dL (8.4-10.2); Hemolysis Index 3
[2022-06-24 06:33] LABS: Basophils % (Manual) 0 % (0.0-1.8); Eosinophils % (Manual) 0 % (0.0-4.3); RBC Morphology Normal; Total Cells Counted 100
--- NOTE | 2022-06-24 08:38 | Discharge Summary ---
Providers - Providers Date of Admission: 06/23/22 00:56 Date of discharge: 06/25/22 Attending physician: MAIKOL GRAFF 06/22/22 22:22 Consult to Physician [CONS] Stat Comment: KAT De Santiago spoke with Dr. Allen @ [phone] Consulting Provider: ANGELI ALLEN Physician Instructions: Reason For Exam: acute cholecystitis Primary care physician: RESHMA BENZ Hospitalization Reason for admission: Cholecystitis Condition: Stable Hospital course: 52-year-old male with no significant past medical history presenting to the emergency room today complaining of abdominal pain. Work-up in the emergency room today, gallbladder ultrasound reveals sludge and a few punctate stones. No biliary dilatation. CT abdomen and pelvis reveals reveals findings consistent with acute cholecystitis. The patient was admitted with diagnosis of sepsis and acute cholecystitis. The patient was treated with IV antibiotics of Zosyn. Patient underwent robotic assisted cholecystectomy. Findings of the surgery revealed severely distended gangrenous gallbladder with bile peritonitis. The patient also had a placement of a drain. Initially, DARA output was bile tinged and WBC elevated 21K. Abx continued and output monitored postoperatively. Next day WBC normalized and DARA drain cleared. DARA removed and Surgery recommends discharge. D/C time 32 min Disposition: 01 HOME / SELF CARE / HOMELESS Final Discharge Diagnosis (Prints w/discharge instructions): Sepsis, acute cholecystitis Core Measure Documentation - Palliative Care Palliative Care/ Comfort Measures: Not Applicable - Core Measures Any of the following diagnoses?: none Exam - Constitutional Vitals: Temp Pulse Resp BP Pulse Ox 97.6 F 91 H 20 125/82 97 06/23/22 21:48 06/23/22 21:48 06/24/22 05:00 06/23/22 21:48 06/24/22 05:00 General appearance: Present: no acute distress, well-nourished - EENT Eyes: Present: PERRL ENT: hearing intact, clear oral mucosa - Neck Neck: Present: supple, normal ROM - Respiratory Respiratory effort: normal Respiratory: bilateral: CTA - Cardiovascular Heart Sounds: Present: S1 & S2. Absent: rub, click - Extremities Extremities: pulses symmetrical, No edema Peripheral Pulses: within normal limits - Abdominal General gastrointestinal: Present: soft, non-tender, non-distended, normal bowel sounds Male genitourinary: Present: normal - Integumentary Integumentary: Present: clear, warm, dry - Musculoskeletal Musculoskeletal: gait normal, strength equal bilaterally - Psychiatric Psychiatric: appropriate mood/affect, intact judgment & insight - Neurologic Neurologic: CNII-XII intact, moves all extremities Plan Activity: advance as tolerated Weight Bearing Status: Weight Bear as Tolerated Follow up with: RESHMA BENZ MD [Primary Care Provider] - 7 Days BREE PINZON MD [Staff Physician] - 7 Days Prescriptions: Amoxicillin/K Clav Tab [Augmentin 875 mg] 1 tab PO Q12HR #14 tab HYDROcodone/APAP 5-325 [Chaplin 5-325 mg TAB] 1 each PO Q4H PRN #10 tablet PRN Reason: Pain, Moderate (4-6)
[2022-06-24] MEDS: MORPHINE 2 MG/1 ML INJ IV PRN (09:04)
--- NOTE | 2022-06-24 09:41 | Progress Note ---
Assessment and Plan Assessment and plan: 52-year-old male with no significant past medical history presenting to the emergency room today complaining of abdominal pain. Work-up in the emergency room today, gallbladder ultrasound reveals sludge and a few punctate stones. No biliary dilatation. CT abdomen and pelvis reveals reveals findings consistent with acute cholecystitis. Acute cholecystitis Sepsis. POA. Patient meets criteria given the leukocytosis, tachycardia and diagnosis of cholecystitis. Abdominal pain 06/23/2022. Continue IV antibiotics. Follow-up blood cultures. Await general surgery consultation 06/24/2022. Patient was anticipated to discharge possibly today. However, patient with increasing WBC. Given the leukocytosis, we will continue IV antibiotics and defer to surgery with regards to discharge plans. History Interval history: No new issues overnight Hospitalist Physical - Constitutional Vitals: Temp Pulse Resp BP Pulse Ox 97.6 F 91 H 20 125/82 97 06/23/22 21:48 06/23/22 21:48 06/24/22 05:00 06/23/22 21:48 06/24/22 05:00 General appearance: Present: no acute distress, well-nourished - EENT Eyes: Present: PERRL, EOM intact ENT: hearing intact, clear oral mucosa, dentition normal - Neck Neck: Present: supple, normal ROM - Respiratory Respiratory effort: normal Respiratory: bilateral: CTA - Cardiovascular Rhythm: regular Heart Sounds: Present: S1 & S2. Absent: gallop, rub - Extremities Extremities: no ischemia, No edema, Full ROM - Abdominal General gastrointestinal: soft, non-tender, non-distended, normal bowel sounds - Integumentary Integumentary: Present: clear, warm, dry - Neurologic Neurologic: CNII-XII intact, moves all extremities Results - Labs CBC & Chem 7: 06/24/22 04:42 06/24/22 04:42 Labs: Laboratory Last Values WBC 21.2 K/mm3 (4.5-11.0) H 06/24/22 04:42 RBC 4.25 M/mm3 (3.65-5.03) 06/24/22 04:42 Hgb 12.4 gm/dl (11.8-15.2) D 06/24/22 04:42 Hct 38.2 % (35.5-45.6) D 06/24/22 04:42 MCV 90 fl (84-94) 06/24/22 04:42 MCH 29 pg (28-32) 06/24/22 04:42 MCHC 32 % (32-34) 06/24/22 04:42 RDW 15.4 % (13.2-15.2) H 06/24/22 04:42 Plt Count 273 K/mm3 (140-440) 06/24/22 04:42 Lymph % (Auto) 7.9 % (13.4-35.0) L 06/22/22 09:54 [place]arton % (Auto) 10.8 % (0.0-7.3) H 06/22/22 09:54 Eos % (Auto) 0.2 % (0.0-4.3) 06/22/22 09:54 Baso % (Auto) 0.3 % (0.0-1.8) 06/22/22 09:54 Lymph # (Auto) 1.0 K/mm3 (1.2-5.4) L 06/22/22 09:54 Wharton # (Auto) 1.4 K/mm3 (0.0-0.8) H 06/22/22 09:54 Eos # (Auto) 0.0 K/mm3 (0.0-0.4) 06/22/22 09:54 Baso # (Auto) 0.0 K/mm3 (0.0-0.1) 06/22/22 09:54 Add Manual Diff Complete 06/24/22 04:42 Total Counted 100 06/24/22 04:42 Seg Neutrophils % 80.8 % (40.0-70.0) H 06/22/22 09:54 Seg Neuts % (Manual) 86.0 % (40.0-70.0) H 06/24/22 04:42 Band Neutrophils % 0 % 06/24/22 04:42 Lymphocytes % (Manual) 8.0 % (13.4-35.0) L 06/24/22 04:42 Reactive Lymphs % (Man) 0 % 06/24/22 04:42 Monocytes % (Manual) 6.0 % (0.0-7.3) 06/24/22 04:42 Eosinophils % (Manual) 0 % (0.0-4.3) 06/24/22 04:42 Basophils % (Manual) 0 % (0.0-1.8) 06/24/22 04:42 Metamyelocytes % 0 % 06/24/22 04:42 Myelocytes % 0 % 06/24/22 04:42 Promyelocytes % 0 % 06/24/22 04:42 Blast Cells % 0 % 06/24/22 04:42 Nucleated RBC % Not Reportable 06/24/22 04:42 Seg Neutrophils # 10.1 K/mm3 (1.8-7.7) H 06/22/22 09:54 Seg Neutrophils # Man 18.2 K/mm3 (1.8-7.7) H 06/24/22 04:42 Band Neutrophils # 0.0 K/mm3 06/24/22 04:42 Lymphocytes # (Manual) 1.7 K/mm3 (1.2-5.4) 06/24/22 04:42 Abs React Lymphs (Man) 0.0 K/mm3 06/24/22 04:42 Monocytes # (Manual) 1.3 K/mm3 (0.0-0.8) H 06/24/22 04:42 Eosinophils # (Manual) 0.0 K/mm3 (0.0-0.4) 06/24/22 04:42 Basophils # (Manual) 0.0 K/mm3 (0.0-0.1) 06/24/22 04:42 Metamyelocytes # 0.0 K/mm3 06/24/22 04:42 Myelocytes # 0.0 K/mm3 06/24/22 04:42 Promyelocytes # 0.0 K/mm3 06/24/22 04:42 Blast Cells # 0.0 K/mm3 06/24/22 04:42 WBC Morphology Not Reportable 06/24/22 04:42 Hypersegmented Neuts Not Reportable 06/24/22 04:42 Hyposegmented Neuts Not Reportable 06/24/22 04:42 Hypogranular Neuts Not Reportable 06/24/22 04:42 Smudge Cells Not Reportable 06/24/22 04:42 Toxic Granulation Not Reportable 06/24/22 04:42 Toxic Vacuolation Not Reportable 06/24/22 04:42 Dohle Bodies Not Reportable 06/24/22 04:42 Pelger-Huet Anomaly Not Reportable 06/24/22 04:42 Francheska Rods Not Reportable 06/24/22 04:42 Platelet Estimate Not Reportable 06/24/22 04:42 Clumped Platelets Not Reportable 06/24/22 04:42 Plt Clumps, EDTA Not Reportable 06/24/22 04:42 Large Platelets Not Reportable 06/24/22 04:42 Giant Platelets Not Reportable 06/24/22 04:42 Platelet Satelliting Not Reportable 06/24/22 04:42 Plt Morphology Comment Not Reportable 06/24/22 04:42 RBC Morphology Normal 06/24/22 04:42 Dimorphic RBCs Not Reportable 06/24/22 04:42 Polychromasia Not Reportable 06/24/22 04:42 Hypochromasia Not Reportable 06/24/22 04:42 Poikilocytosis Not Reportable 06/24/22 04:42 Anisocytosis Not Reportable 06/24/22 04:42 Microcytosis Not Reportable 06/24/22 04:42 Macrocytosis Not Reportable 06/24/22 04:42 Spherocytes Not Reportable 06/24/22 04:42 Pappenheimer Bodies Not Reportable 06/24/22 04:42 Sickle Cells Not Reportable 06/24/22 04:42 Target Cells Not Reportable 06/24/22 04:42 Tear Drop Cells Not Reportable 06/24/22 04:42 Ovalocytes Not Reportable 06/24/22 04:42 Helmet Cells Not Reportable 06/24/22 04:42 Mccann-Butternut Bodies Not Reportable 06/24/22 04:42 Royston Rings Not Reportable 06/24/22 04:42 Ruby Cells Not Reportable 06/24/22 04:42 Bite Cells Not Reportable 06/24/22 04:42 Crenated Cell Not Reportable 06/24/22 04:42 Elliptocytes Not Reportable 06/24/22 04:42 Acanthocytes (Spur) Not Reportable 06/24/22 04:42 Rouleaux Not Reportable 06/24/22 04:42 Hemoglobin C Crystals Not Reportable 06/24/22 04:42 Schistocytes Not Reportable 06/24/22 04:42 Malaria parasites Not Reportable 06/24/22 04:42 Ravi Bodies Not Reportable 06/24/22 04:42 Hem Pathologist Commnt No 06/24/22 04:42 Sodium 145 mmol/L (137-145) D 06/24/22 04:42 Potassium 4.5 mmol/L (3.6-5.0) 06/24/22 04:42 Chloride 104.5 mmol/L (98-107) 06/24/22 04:42 Carbon Dioxide 28 mmol/L (22-30) 06/24/22 04:42 Anion Gap 17 mmol/L 06/24/22 04:42 BUN 15 mg/dL (9-20) 06/24/22 04:42 Creatinine 1.2 mg/dL (0.8-1.3) 06/24/22 04:42 Estimated GFR > 60 ml/min 06/24/22 04:42 BUN/Creatinine Ratio 13 % 06/24/22 04:42 Glucose 141 mg/dL (75-100) H 06/24/22 04:42 Calcium 8.9 mg/dL (8.4-10.2) 06/24/22 04:42 Total Bilirubin 0.60 mg/dL (0.1-1.2) 06/24/22 04:42 Direct Bilirubin 0.6 mg/dL (0-0.2) H 06/22/22 23:25 Indirect Bilirubin 0.7 mg/dL 06/22/22 23:25 AST 30 units/L (5-40) 06/24/22 04:42 ALT 26 units/L (7-56) 06/24/22 04:42 Alkaline Phosphatase 96 units/L (35-129) 06/24/22 04:42 Total Protein 5.9 g/dL (6.3-8.2) L 06/24/22 04:42 Albumin 3.5 g/dL (3.9-5) L 06/24/22 04:42 Albumin/Globulin Ratio 1.5 % 06/24/22 04:42 Amylase 85 units/L (27-131) 06/22/22 09:54 Lipase 23 units/L (13-60) 06/22/22 09:54 Urine Color Yellow (Yellow) 06/22/22 18:42 Urine Turbidity Turbid (Clear) 06/22/22 18:42 Specific [place] (Man) 1.030 (1.003-1.030) 06/22/22 18:42 Ur Protein (Man) 4+ mg/dL (Negative) 06/22/22 18:42 Ur Ketones (Man) 3+ (Negative) 06/22/22 18:42 Ur Nitrite (Man) Negative (Negative) 06/22/22 18:42 Urine Bilirubin (Man) Moderate (Negative) 06/22/22 18:42 Urine Ictotest Negative (Negative) 06/22/22 18:42 Leukocyte Esterase (Man) Negative (Negative) 06/22/22 18:42 Urine WBC (Auto) 9.0 /HPF (0.0-6.0) H 06/22/22 18:42 Urine RBC (Auto) 9.0 /HPF (0.0-6.0) 06/22/22 18:42 U Epithel Cells (Auto) 1.0 /HPF (0-13.0) 06/22/22 18:42 Urine Bacteria (Auto) 1+ /HPF (Negative) 06/22/22 18:42 Urine RBC (Manual) 2+ (Negative) 06/22/22 18:42 Hyaline Casts 1 /LPF 06/22/22 18:42 Granular Casts 3 /LPF 06/22/22 18:42 Urine Mucus 1+ /HPF 06/22/22 18:42 Microbiology: Microbiology 06/23/22 21:49 Peripheral/Venous Blood Culture - Preliminary Culture in Progress 06/23/22 21:40 Peripheral/Venous Blood Culture - Preliminary Culture in Progress [place]/IV: Voiding Method Urinal Active Medications - Current Medications Current Medications: Generic Name Dose Route Start Last Admin Trade Name Freq PRN Reason Stop Dose Admin Acetaminophen 650 mg 06/23/22 00:56 Acetaminophen 325 Mg Tab PO Q4H PRN Pain MILD(1-3)/Fever >100.5/KAUR Hydrocodone Bitart/Acetaminophen 1 each 06/23/22 16:29 Hydrocodone/Acetaminophen 5-325 Mg Tab PO Q4H PRN Pain, Moderate (4-6) Sodium Chloride 1,000 mls @ 75 mls/hr 06/23/22 01:00 06/23/22 03:10 Nacl 0.9% 1000 Ml IV 125 mls/hr DIRECT NAN Administration Piperacillin Sod/Tazobactam Sod 4.5 gm in 100 mls @ 200 mls/hr 06/23/22 06:00 06/24/22 05:46 Zosyn/Ns 4.5gm/100ml IV 200 mls/hr Q8H NAN Administration Protocol Magnesium Hydroxide 30 ml 06/23/22 00:56 Magnesium Hydroxide (Mom) Oral Liqd Udc PO Q4H PRN Constipation Morphine Sulfate 2 mg 06/23/22 00:56 06/24/22 09:04 Morphine 2 Mg/1 Ml Inj IV 2 mg Q4H PRN Administration Pain , Severe (7-10) Ondansetron HCl 4 mg 06/23/22 00:56 06/24/22 09:04 Ondansetron 4 Mg/2 Ml Inj IV 4 mg Q8H PRN Administration Nausea And Vomiting Sodium Chloride 10 ml 06/23/22 10:00 06/23/22 21:49 Sodium Chloride 0.9% 10 Ml Flush Syringe IV 10 ml BID NAN Administration Sodium Chloride 10 ml 06/23/22 00:56 Sodium Chloride 0.9% 10 Ml Flush Syringe IV PRN PRN LINE FLUSH
--- NOTE | 2022-06-24 10:37 | Progress Note ---
Assessment and Plan Pt is a 52 yo male pod #1 sp robotic joe for gangrenous cholecystitis. Pt wbc is 21,000 this am. MELITON output is bile tinged , mostly serous low volume. Cont IV ab and cont to monitor meliton output. If MELITON output does not turn bilious will remove in am and Pt maybe discharged. Subjective Date of service: 06/24/22 Patient Reports: Positive: feels better, still having pain, tolerating a regular diet Narrative: Pt is a 52 yo male pod #1 sp robotic joe for gangrenous cholecystitis. Pt wbc is 21,000 this am. MELITON output is bile tinged , mostly serous low volume. Cont IV ab and cont to monitor meliton output. Objective Vital Signs - 12hr 06/24/22 05:00 Respiratory 20 Rate O2 Sat by Pulse 97 Oximetry - Labs 06/24/22 04:42 06/24/22 04:42 Diabetes panel 06/24/22 Range/Units 04:42 Sodium 145 D (137-145) mmol/L Potassium 4.5 (3.6-5.0) mmol/L Chloride 104.5 (98-107) mmol/L Carbon Dioxide 28 (22-30) mmol/L BUN 15 (9-20) mg/dL Creatinine 1.2 (0.8-1.3) mg/dL Glucose 141 H (75-100) mg/dL Calcium 8.9 (8.4-10.2) mg/dL AST 30 (5-40) units/L ALT 26 (7-56) units/L Alkaline Phosphatase 96 (35-129) units/L Total Protein 5.9 L (6.3-8.2) g/dL Albumin 3.5 L (3.9-5) g/dL Calcium panel 06/24/22 Range/Units 04:42 Calcium 8.9 (8.4-10.2) mg/dL Albumin 3.5 L (3.9-5) g/dL Pituitary panel 06/24/22 Range/Units 04:42 Sodium 145 D (137-145) mmol/L Potassium 4.5 (3.6-5.0) mmol/L Chloride 104.5 (98-107) mmol/L Carbon Dioxide 28 (22-30) mmol/L BUN 15 (9-20) mg/dL Creatinine 1.2 (0.8-1.3) mg/dL Glucose 141 H (75-100) mg/dL Calcium 8.9 (8.4-10.2) mg/dL Adrenal panel 06/24/22 Range/Units 04:42 Sodium 145 D (137-145) mmol/L Potassium 4.5 (3.6-5.0) mmol/L Chloride 104.5 (98-107) mmol/L Carbon Dioxide 28 (22-30) mmol/L BUN 15 (9-20) mg/dL Creatinine 1.2 (0.8-1.3) mg/dL Glucose 141 H (75-100) mg/dL Calcium 8.9 (8.4-10.2) mg/dL Total Bilirubin 0.60 (0.1-1.2) mg/dL AST 30 (5-40) units/L ALT 26 (7-56) units/L Alkaline Phosphatase 96 (35-129) units/L Total Protein 5.9 L (6.3-8.2) g/dL Albumin 3.5 L (3.9-5) g/dL
[2022-06-24] MEDS: HYDROcodone/ACETAMINOPHEN 5-325 MG TAB PO PRN ×2 (14:56→23:29)
[2022-06-24] MEDS ORDERED: NICOTINE 14 MG/24 HR PATCH TD SCH (17:00)
[2022-06-25] MEDS: PIPERACIL/TAZOBACTA 4.5/NS 100 4.5 GM/100 ML VIAL IV SCH (05:10)
[2022-06-25] MEDS: HYDROcodone/ACETAMINOPHEN 5-325 MG TAB PO PRN ×2 (05:11→12:45)
[2022-06-25 05:43] LABS: Basophils % (Auto) 0.2 % (0.0-1.8); Eosinophils # (Auto) 0.1 K/mm3 (0.0-0.4); Hematocrit 36.9 % (35.5-45.6); Hemoglobin 12.1 gm/dl (11.8-15.2); Lymphocytes % (Auto) 20.6 % (13.4-35.0); Mean Corpuscular HGB Conc 33 % (32-34); Mean Corpuscular Volume 89 fl (84-94); Monocytes # (Auto) 0.9 K/mm3 (0.0-0.8); Monocytes % (Auto) 9.2 % (0.0-7.3); Platelet Count 311 K/mm3 (140-440); Red Blood Count 4.13 M/mm3 (3.65-5.03); Red Cell Distribution Width 15.2 % (13.2-15.2)
[2022-06-25 05:57] LABS: BUN/Creatinine Ratio 18; Blood Urea Nitrogen 16 mg/dL (9-20); Calcium 8.6 mg/dL (8.4-10.2); Hemolysis Index 3
--- NOTE | 2022-06-25 08:09 | Progress Note ---
Assessment and Plan Pt is a 52 yo male pod #1 sp robotic joe for gangrenous cholecystitis. Pt wbc is 21,000 this am. MELITON output is bile tinged , mostly serous low volume. Cont IV ab and cont to monitor meliton output. IPOD#2 pt with gangrenous gb. MELITON output remains clear. MELITON removed. Pt rae reg diet. OK to DC. Fu with Dr. Tierney in one week. Subjective Date of service: 06/25/22 Patient Reports: Positive: no new complaints, pain is less, tolerating a regular diet Narrative: POD#2 pt with gangrenous gb. MELITON output remains clear. MELITON removed. Pt rae reg diet. OK to DC. Fu with Dr. Tierney in one week. Objective Vital Signs - 12hr 06/24/06/24/22 06/24/22 20:25 23:00 23:01 Temperature 98.1 F Pulse Rate 77 77 Respiratory 18 18 Rate Blood Pressure 147/88 O2 Sat by Pulse 98 91 92 Oximetry - Labs 06/25/22 04:53 06/25/22 04:53 Diabetes panel 06/25/22 Range/Units 04:53 Sodium 139 (137-145) mmol/L Potassium 4.0 (3.6-5.0) mmol/L Chloride 102.7 (98-107) mmol/L Carbon Dioxide 27 (22-30) mmol/L BUN 16 (9-20) mg/dL Creatinine 0.9 (0.8-1.3) mg/dL Glucose 104 H (75-100) mg/dL Calcium 8.6 (8.4-10.2) mg/dL Calcium panel 06/25/22 Range/Units 04:53 Calcium 8.6 (8.4-10.2) mg/dL Pituitary panel 06/25/22 Range/Units 04:53 Sodium 139 (137-145) mmol/L Potassium 4.0 (3.6-5.0) mmol/L Chloride 102.7 (98-107) mmol/L Carbon Dioxide 27 (22-30) mmol/L BUN 16 (9-20) mg/dL Creatinine 0.9 (0.8-1.3) mg/dL Glucose 104 H (75-100) mg/dL Calcium 8.6 (8.4-10.2) mg/dL Adrenal panel 06/25/22 Range/Units 04:53 Sodium 139 (137-145) mmol/L Potassium 4.0 (3.6-5.0) mmol/L Chloride 102.7 (98-107) mmol/L Carbon Dioxide 27 (22-30) mmol/L BUN 16 (9-20) mg/dL Creatinine 0.9 (0.8-1.3) mg/dL Glucose 104 H (75-100) mg/dL Calcium 8.6 (8.4-10.2) mg/dL
[2022-06-25 13:10] VITALS: BP 159/99
== END 2022-06-25 13:45 | disposition home or self-care (01) | DRG 853 ==
LOC: ED 09:05 → 3A 06-23 00:56
PROVIDERS: ADMIT Internal Medicine Geriatric Medicine; ATTEND Hospitalist
PROC: 0FT44ZZ Resection of Gallbladder, Percutaneous Endoscopic Approach (ICD-10-PCS; principal; 2022-06-23)
PROC: 8E0W4CZ Robotic Assisted Procedure of Trunk Region, Percutaneous Endoscopic Approach (ICD-10-PCS; 2022-06-23)
DX: A41.9 Sepsis, unspecified organism (principal); K65.3 Choleperitonitis; K81.0 Acute cholecystitis; F17.200 Nicotine dependence, unspecified, uncomplicated; I10 Essential (primary) hypertension; K82.A1 Gangrene of gallbladder in cholecystitis
CPT/HCPCS: 36415; 74177; 76705; 80048; 80053; 80076; 81001; 82150; 83690; 85007; 85025; 87040; 87086; 88304; 93005; 99406; G0378; J1815; J3490; J0330; J1100; J1170; J2270; J2405; J2543; J2704; J2710; J3010; J7030; J7120; Q9967